=== PATIENT | male | born 1950 | race African-American/Black ===

== ENCOUNTER 2017-03-31 22:02 | Observation (INO) | payer OTHER ==
[~2017-03-31] VITALS: Ht 165.1 cm; Wt 71.2 kg
[~2017-03-31 22:02] MED LIST: BP MED; LEVAQUIN750 MG PO; LISINOPRIL10 MG PO; PRILOSEC10 MG PO; PROTONIX20 MG PO; TUMS FRESHERS200 MG PO; XARELTO15 MG PO; XARELTO20 MG PO
[2017-03-31 22:45] LABS: HEMATOCRIT 38.9 % (38.0-50.0); MCH 28.7 PG (29.0-34.0); MCHC 33.9 G/DL (30.0-36.0); MCV 84.6 FL (86-99); MEAN PLAT.VOLUME 9.7 uM^3 (9.0-12.4); PLATELET COUNT 209 K/uL (156-360); RBC DIS.WIDTH-CV 13.3 % (11.8-14.6); RBC DIS.WIDTH-SD 41.1 % (39-53); WHITE BLOOD COUNT 4.8 K/uL (4.1-10.2)
[2017-03-31] MEDS ORDERED: LISINOPRIL5 MG PO (22:53)
[2017-03-31] MEDS ORDERED: XARELTO20 MG PO (22:53)
[2017-03-31 22:54] LABS: CHLORIDE 105 mEq/L (99-109); POTASSIUM 3.6 mEq/L (3.7-5.4); SODIUM 137 mEq/L (136-147)
[2017-03-31 22:55] LABS: GLUCOSE 164 mg/dL (70-99)
[2017-03-31 22:57] LABS: ANION GAP 9 MEQ/L (2-14)
[2017-03-31 22:59] LABS: GFR ESTIMATE (CALCULATED) > 59 mL/min/
[2017-03-31 23:00] LABS: UREA NITROGEN (BUN) 12 mg/dL (9-23)
[2017-03-31] MEDS ORDERED: RANITIDINE HCL150 MG PO (23:07)
[2017-03-31 23:08] LABS: TROP-I INTERPRETATION NEGATIVE; TROPONIN-I < 0.01 ng/mL (0.0-0.30)
[2017-03-31] MEDS ORDERED: PROAIR HFA8.5 GM IH (23:08)
[2017-04-01 00:52] LABS: D-DIMER ELISA < 0.15 mg/L FEU (< 0.57)
[2017-04-01 00:55] LABS: TOTAL BILIRUBIN 0.3 mg/dL (0.0-1.0)
[2017-04-01 00:56] LABS: ALKALINE PHOSPHATASE 97 IU/L (3-129)
[2017-04-01 00:59] LABS: DIRECT BILIRUBIN 0.1 mg/dL (0.0-0.3)
[2017-04-01 01:00] LABS: LIPASE 35 U/L (1.0-51.0)
[2017-04-01 04:13] VITALS: BP 145/88
[2017-04-01 04:55] LABS: CHLORIDE 106 mEq/L (99-109); POTASSIUM 4.3 mEq/L (3.7-5.4); SODIUM 140 mEq/L (136-147)
[2017-04-01 04:59] LABS: ANION GAP 8 MEQ/L (2-14)
[2017-04-01 05:01] LABS: GFR ESTIMATE (CALCULATED) > 59 mL/min/; GLUCOSE 104 mg/dL (70-99)
[2017-04-01 05:02] LABS: UREA NITROGEN (BUN) 10 mg/dL (9-23)
[2017-04-01 05:03] LABS: TROP-I INTERPRETATION NEGATIVE; TROPONIN-I < 0.01 ng/mL (0.0-0.30)
[2017-04-01 07:02] VITALS: BP 133/85
[2017-04-01] MEDS ORDERED: PROTONIX40 MG PO (10:54)
[2017-04-01 11:55] LABS: TROP-I INTERPRETATION NEGATIVE; TROPONIN-I < 0.01 ng/mL (0.0-0.30)
[2017-04-01 12:16] VITALS: BP 118/71
== END 2017-04-01 13:20 | disposition home or self-care (01) ==
LOC: EME 22:02 → EDOF 04-01 00:31 → 5WEST 04-01 01:15
PROVIDERS: Emergency Medicine; Hospitalist
DX: R07.89 Other chest pain (principal); I12.9 Hypertensive chronic kidney disease with stage 1 through stage 4 chronic kidney disease, or unspecified chronic kidney disease; N18.9 Chronic kidney disease, unspecified; K21.9 Gastro-esophageal reflux disease without esophagitis; E78.5 Hyperlipidemia, unspecified; Z86.711 Personal history of pulmonary embolism; Z87.891 Personal history of nicotine dependence
CPT/HCPCS: 71020; 80048; 80076; 83690; 83880; 84484; 85027; 85379; 93005; 99281; 99285; G0378; J7030

== ENCOUNTER 2017-07-04 10:45 | Emergency (ER) | payer OTHER ==
[~2017-07-04] VITALS: Ht 167.6 cm; Wt 71.8 kg
[~2017-07-04 10:45] MED LIST changes: +LISINOPRIL5 MG PO; +PROAIR HFA8.5 GM IH; +PROTONIX40 MG PO; +RANITIDINE HCL150 MG PO
[2017-07-04 12:28] LABS: HEMATOCRIT 40.9 % (38.0-50.0); MCH 28.8 PG (29.0-34.0); MCHC 33.7 G/DL (30.0-36.0); MCV 85.4 FL (86-99); MEAN PLAT.VOLUME 10.9 uM^3 (9.0-12.4); PLATELET COUNT 168 K/uL (156-360); RBC DIS.WIDTH-CV 12.9 % (11.8-14.6); RBC DIS.WIDTH-SD 40.2 % (39-53); RED BLOOD COUNT 4.79 M/uL (4.00-5.50); WHITE BLOOD COUNT 4.6 K/uL (4.1-10.2)
[2017-07-04 12:42] LABS: CHLORIDE 104 mEq/L (99-109); POTASSIUM 4.1 mEq/L (3.7-5.4); SODIUM 138 mEq/L (136-147)
[2017-07-04 12:44] LABS: GLUCOSE 114 mg/dL (70-99)
[2017-07-04 12:45] LABS: ANION GAP 8 MEQ/L (2-14)
[2017-07-04 12:46] LABS: TOTAL BILIRUBIN 0.4 mg/dL (0.0-1.0)
[2017-07-04 12:48] LABS: ALKALINE PHOSPHATASE 113 IU/L (3-129); GFR ESTIMATE (CALCULATED) 56 mL/min/
[2017-07-04 12:49] LABS: UREA NITROGEN (BUN) 13 mg/dL (9-23)
[2017-07-04 12:51] LABS: LIPASE 25 U/L (1.0-51.0)
[2017-07-04] MEDS ORDERED: ZOFRAN ODT4 MG PO (14:19)
[2017-07-04] MEDS ORDERED: BENTYL20 MG PO (14:19)
[2017-07-04 14:46] VITALS: BP 110/83
== END 2017-07-04 14:47 | disposition home or self-care (01) ==
LOC: EME 10:45
PROVIDERS: Nurse Practitioner Family
DX: R10.84 Generalized abdominal pain (principal); N28.9 Disorder of kidney and ureter, unspecified; J44.9 Chronic obstructive pulmonary disease, unspecified; K21.9 Gastro-esophageal reflux disease without esophagitis; I10 Essential (primary) hypertension; Z86.711 Personal history of pulmonary embolism; Z87.891 Personal history of nicotine dependence
CPT/HCPCS: 74176; 80053; 83690; 85027; 99281; 99284; J1885; J7040

== ENCOUNTER 2017-11-03 13:28 | Emergency (ER) | payer SELFPAY ==
[~2017-11-03] VITALS: Ht 165.1 cm; Wt 73.8 kg
[~2017-11-03 13:28] MED LIST changes: +BENTYL20 MG PO; +ZOFRAN ODT4 MG PO
[2017-11-03 14:22] LABS: HEMATOCRIT 39.9 % (38.0-50.0); MCH 28.9 PG (29.0-34.0); MCHC 34.3 G/DL (30.0-36.0); MCV 84.2 FL (86-99); MEAN PLAT.VOLUME 9.2 uM^3 (9.0-12.4); PLATELET COUNT 207 K/uL (156-360); RBC DIS.WIDTH-CV 13.1 % (11.8-14.6); RBC DIS.WIDTH-SD 39.9 % (39-53); RED BLOOD COUNT 4.74 M/uL (4.00-5.50); WHITE BLOOD COUNT 4.6 K/uL (4.1-10.2)
[2017-11-03 14:33] LABS: CHLORIDE 104 mEq/L (99-109); D-DIMER ELISA < 150.00 ng/mLDDU (<230); SODIUM 138 mEq/L (136-147)
[2017-11-03 14:35] LABS: GLUCOSE 105 mg/dL (70-99)
[2017-11-03 14:36] LABS: ANION GAP 9 MEQ/L (2-14)
[2017-11-03 14:38] LABS: GFR ESTIMATE (CALCULATED) > 59 mL/min/ (58.99-99999)
[2017-11-03 14:39] LABS: UREA NITROGEN (BUN) 12 mg/dL (9-23)
[2017-11-03 15:11] LABS: TROP-I INTERPRETATION NEGATIVE; TROPONIN-I < 0.01 ng/mL (0.0-0.30)
[2017-11-03] MEDS ORDERED: NAPROXEN500 MG PO (15:36)
[2017-11-03 15:49] VITALS: BP 164/93
== END 2017-11-03 15:51 | disposition home or self-care (01) ==
LOC: EME 13:28
PROVIDERS: Physician Assistant Medical
DX: M54.6 Pain in thoracic spine (principal); I10 Essential (primary) hypertension; J44.9 Chronic obstructive pulmonary disease, unspecified; Z86.711 Personal history of pulmonary embolism; Z79.01 Long term (current) use of anticoagulants; Z87.891 Personal history of nicotine dependence
CPT/HCPCS: 71020; 80048; 84484; 85027; 85379; 93005; 99281; 99284